=== PATIENT | male | born 1955 | race Caucasian/White ===

== ENCOUNTER 2020-12-01 06:47 | Day surgery (SDC) | payer MEDICARE, SELFPAY ==
[2020-11-30 08:12] VITALS: BMI 22.5
[2020-12-01 07:05] LABS: Hematocrit 50.1 % (40-54); Hemoglobin 16.2 g/dL (13.0-16.5); Mean Corp Hgb Conc 32.3 g/dL (32-36); Mean Corpuscular Hgb 30.9 pg (27.0-32.0); Mean Corpuscular Volume 95.6 fL (80-94); Mean Platelet Vol. 10.3 fl (6.2-12.0); Platelet Count 219 K/mm3 (150-450); RBC Distribution Width SD 46.5 fl (35.1-43.9); Red Blood Count 5.24 M/mm3 (4.6-6.2); White Blood Count 8.7 K/mm3 (4.4-11.0)
[2020-12-01 07:40] LABS: Albumin, Serum 3.6 g/dL (3.2-5.0); BUN 16 mg/dL (7-18); BUN/Creat Ratio 11.8 RATIO (10-20); Calcium,Total 8.8 mg/dL (8.5-10.1); Chloride 107 mmol/L (98-107); Creatinine, Serum 1.36 mg/dL (0.70-1.30); EST Glomerular Filtration Rate 56 mL/min (>60); Est Glom Filt Rate - Afr Amer 67 mL/min (>60); Estimated Creatinine Clearance 65.94 ml/min; Glucose 106 mg/dL (74-106); Phosphorus 3.8 mg/dL (2.5-4.9); Potassium 4.4 mmol/L (3.5-5.1); Sodium Level 139 mmol/L (136-145)
--- NOTE | 2020-12-01 08:39 | OP.PCM_ITS ---
Problem List (1) PAD (peripheral artery disease) Status: Acute Report of Operation Date of Procedure: 12/01/20 Pre-Operative Diagnosis: 1. PAD with right external iliac occlusion Post-Operative Diagnosis: The same Surgery/Procedure Performed:: 1. Ultrasound-guided access retrograde left brachial artery. 2. Right iliofemoral angiogram. Catheter placed into the common femoral artery. 3. Balloon angioplasty the right external iliac artery with a 6 mm balloon, 6 x 120 drug-coated balloon and then a 7 x 80 balloon. 4. Stent the right external echo artery with a 8 x 60 self-expandable stent and post balloon with a 7 mm. Type of Anesthesia:: Sedation,Conscious Description of Procedure: Patient brought to the [employer]. Underwent appropriate timeout consent. Underwent sedation. Prepped and draped in a sterile fashion. We did ultrasound-guided access retrograde left brachial artery. Put a Glidewire down the aorta and switch to a long stiff wire. Brought in a long 6 [place] sheath. We did a right iliofemoral angiogram. Using the quick cross and Glidewire got through the occlusion confirm we are in the [place] common femoral artery with good flow through the profunda and femoral. We replaced the wire and then balloon through this occlusion with a 6 mm balloon for 2 different inflations and each for over 2 minutes. We then balloon through the entire thing with a 6 x 120 drug-coated balloon for over 3 minutes. Angio looks much improved but still some proximal narrowing. We ballooned it with a 7 mm x 80 balloon for over 2 minutes. Still some decreased flow noted. We elected then to put an 8 x 60 self-expandable stent and post ballooned it with a 7 mm balloon. Completion angio was much improved with brisk flow through this entire area. We then removed out the sheath and put a shorter sheath. We gave 5000 units of heparin at the beginning and reversed it with 30 of protamine. Sheath was removed pressure was held with good hemostasis. Sedation: This 65-year-old gentleman underwent moderate sedation given by Dr. Walter Da Silva. He was monitored with EKG blood pressure and pulse ox for over the 30 minutes of the procedure. See the EMR for the complete record.
== END 2020-12-01 13:00 | disposition home or self-care (01) ==
LOC: CLSP 06:51
PROVIDERS: PCP Student in an Organized Health Care Education/Training Program; Referring Provider Surgery Vascular Surgery; Visit Provider Surgery Vascular Surgery
DX: I74.5 Embolism and thrombosis of iliac artery (principal); I70.211 Atherosclerosis of native arteries of extremities with intermittent claudication, right leg; I10 Essential (primary) hypertension; E78.00 Pure hypercholesterolemia, unspecified; Z79.02 Long term (current) use of antithrombotics/antiplatelets; Z79.899 Other long term (current) drug therapy; I25.2 Old myocardial infarction; Z87.891 Personal history of nicotine dependence; Z95.1 Presence of aortocoronary bypass graft
CPT/HCPCS: 36245; 36415; 37221; 75710; 76937; 80069; 85027; 93005; 99152; 99153; C2623; J7040; Q9967; C1725; C1769; C1876; C1887; C1894